=== PATIENT | male | born 1955 | race Caucasian/White ===

== ENCOUNTER 2021-10-30 08:11 | Day surgery (SDC) | payer OTHER ==
[2021-10-29 10:23] LABS: BASOPHILS % (AUTO) 0.6 % (0.0-2.0); EOSINOPHILS % (AUTO) 0.4 % (0.0-4.0); HEMATOCRIT 44.9 % (36-54); MEAN CORPUSCULAR VOLUME 86 fL (79.0-98.0); MONOCYTES # (AUTO) 0.6 K/uL (0.0-1.0); MONOCYTES % (AUTO) 8.6 % (1.7-9.3); NEUTROPHILS % (AUTO) 75.4 % (40.0-70.0); PLATELET COUNT (AUTO) 200 K/uL (130-430); RED BLOOD CELL COUNT(AUTO) 5.22 MIL/uL (4.2-6.2); RED CELL DISTRIBUTION WIDTH 13.9 % (9.0-15.0); WHITE BLOOD COUNT (AUTO) 6.6 K/uL (4.8-10.8)
[2021-10-29 10:55] LABS: ALBUMIN 3.9 g/dL (3.4-4.8); CALCIUM 9.5 mg/dL (8.4-11.0); CREATININE 1.01 mg/dL (0.55-1.30); POTASSIUM 4.8 mmol/L (3.5-5.1); TOTAL BILIRUBIN 1.4 mg/dL (0.0-1.0)
[~2021-10-30] VITALS: Ht 188 cm; Wt 73.5 kg
[~2021-10-30 08:11] MED LIST: ACYC-133 PO; CEFAZOLIN SOD 2 GM in D5W 50 ML IV ONE
[2021-10-30] MEDS ORDERED: ROCURONIUM BROMIDE 10 MG/ML (ZEMURON) IV ONE (08:45)
[2021-10-30] MEDS ORDERED: DESFLURANE 15 MIN GAS INH ONE (08:45)
[2021-10-30] MEDS ORDERED: PROPOFOL 200MG/ 20ML VIAL (DIPRIVAN) IV ONE (08:45)
[2021-10-30] MEDS ORDERED: SEVOFLURANE 15 MIN GAS INH ONE (08:45)
[2021-10-30] MEDS ORDERED: ONDANSETRON HCL 4 MG/2 ML VIAL IVP ONE (08:45)
[2021-10-30] MEDS ORDERED: NS 1000 ML IV.SOLN IV ONE (08:45)
[2021-10-30] MEDS ORDERED: BUPIVACAINE /PF 0.25% 30 ML VIAL INJ ONE (08:45)
[2021-10-30] MEDS ORDERED: LR 1,000 ML IV.SOLN IV ONE (08:45)
[2021-10-30] MEDS ORDERED: KETOROLAC TROMETHAMINE 30 MG VIAL IVP ONE (08:45)
[2021-10-30] MEDS ORDERED: BUPIVACAINE LIPOSOME/PF 266 MG/20 ML VIAL INFIL ONE ×2 (10:36→10:37)
[2021-10-30] MEDS ORDERED: LR 1,000 ML IV SCH (12:00)
[2021-10-30] MEDS ORDERED: LABETALOL 100 MG/ 20ML VIAL IVP PRN (12:00)
[2021-10-30] MEDS ORDERED: ONDANSETRON HCL 4 MG/2 ML VIAL IVP PRN (12:00)
[2021-10-30] MEDS ORDERED: HYDROmorphone 1 MG/ML INJ. CARTRIDGE IVP PRN (12:00)
[2021-10-30] MEDS ORDERED: traMADol HCL HCL 50 MG TABLET (ULTRAM) PO PRN (12:15)
[2021-10-30 14:10] VITALS: BP_SYST 129
== END 2021-10-30 13:45 | disposition home or self-care (01) ==
LOC: SDS 08:11 → SMU 08:13 → SDS 13:45
PROVIDERS: ATTEND Surgery
DX: K40.90 Unilateral inguinal hernia, without obstruction or gangrene, not specified as recurrent (principal); Z98.61 Coronary angioplasty status; Z20.822 Contact with and (suspected) exposure to COVID-19; Z79.899 Other long term (current) drug therapy
CPT/HCPCS: 80053; 85025; 36415; 49505; 88302; U0003; J3490; J0690; J1885; J2405; J2704; J7060; J7120; J7030; C1781; C9290